=== PATIENT | female | born 1995 | race Caucasian/White ===

== ENCOUNTER 2016-02-15 06:09 | Emergency (ER) | payer OTHER ==
[~2016-02-15] VITALS: Ht 160 cm; Wt 54.5 kg
[2016-02-15 06:23] VITALS: TEMP 36.4; Ht 160 cm; Wt 54.5 kg
[2016-02-15 07:27] LABS: BASO % 0.1 %; BASO ABS # 0.02 K/uL (0-0.2); COMPLETE YES; EOS % 0.1 %; HEMATOCRIT 37.7 % (37-47); IG% 0.2 %; LYMPH % 7.8 %; LYMPH ABS # 1.09 K/uL (1.2-3.4); MEAN CELL VOLUME 87.9 fL (80-100); MEAN CORPUSCULAR HEMOGLOBIN 30.5 pg (25-34); MEAN CORPUSCULAR HGB CONC 34.7 g/dl (32-36); MEAN PLATELET VOLUME 11.1 fL (7.4-10.4); MONO % 9.1 %; NEUT % 82.7 %; PLATELET COUNT 306 K/uL (130-400); RED BLOOD COUNT 4.29 M/uL (4.2-5.4); WHITE BLOOD COUNT 13.97 K/uL (4.8-10.8)
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
[2016-02-15 07:46] LABS: ALT/SGPT 37 U/L (12-78); AST/SGOT 22 U/L (15-37); BLOOD UREA NITROGEN 12 mg/dl (7-18); BUN/CREATININE RATIO 14.2 (10-20); CALCIUM 9.4 mg/dl (8.5-10.1); CARBON DIOXIDE 24 mmol/L (21-32); CHLORIDE 102 mmol/L (98-107); CREATININE 0.81 mg/dl (0.60-1.20); GLUCOSE 104 mg/dl (70-99); POTASSIUM 3.7 mmol/L (3.5-5.1); SODIUM 138 mmol/L (136-145)
[2016-02-15 07:56] LABS: URINE APPEARANCE CLEAR (CLEAR); URINE BILIRUBIN NEG (NEG); URINE COLOR YELLOW; URINE NITRITE NEG (NEG); URINE SPECIFIC GRAVITY 1.017 (1.000-1.030); UROBILINOGEN NEG (NEG)
[2016-02-15 07:57] LABS: ALB/GLOB RATIO 1.1 (0.9-2); ALKALINE PHOSPHATASE 85 U/L (45-117); THYROID STIMULATING HORMONE 0.996 uIu/ml (0.300-4.500)
[2016-02-15 08:00] LABS: MANUAL MICROSCOPIC REQUIRED? NO; REVIEW REQ? NO
[2016-02-15 08:22] LABS: BENZODIAZEPINE, URINE NEG (NEG); COCAINE,URINE NEG (NEG); PHENCYCLIDINE, URINE NEG (NEG)
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
[2016-02-15] MEDS ORDERED: LEVONORGESTREL (EMERGENCY OC) 1.5 MG TAB PO STA (14:10)
[2016-02-15] MEDS ORDERED: SODIUM CHLORIDE 0.9% 1000ML 1,000 ML IV STA (14:23)
--- NOTE | 2016-02-15 14:52 | DIAGNOSTIC IMAGING REPORT ---
CHEST ONE VIEW PORTABLE CLINICAL HISTORY: Altered mental status. COMPARISON STUDY: No previous studies for comparison. FINDINGS: Lung volumes are normal. Lungs are clear. There is no pneumothorax or pleural effusion. Cardiac size is normal. Mediastinal contours are normal. There is no evidence of pulmonary edema. IMPRESSION: No acute cardiopulmonary findings. Electronically signed by: Filiberto Priest M.D. 02/15/2016 2:51 PM Dictated Date/Time: 02/15/2016 2:50 PM
[2016-02-15 15:18] LABS: BENZODIAZEPINE, URINE NEG (NEG); COCAINE,URINE NEG (NEG); PHENCYCLIDINE, URINE NEG (NEG)
--- NOTE | 2016-02-15 15:21 | DIAGNOSTIC IMAGING REPORT ---
CT OF THE HEAD WITHOUT CONTRAST CLINICAL HISTORY: Altered mental status. COMPARISON STUDY: No previous studies for comparison. CT DOSE: 638.56 mGycm TECHNIQUE: Helical axial images of the head were obtained without IV contrast. Automated exposure control was utilized for the study. FINDINGS: No acute intracranial hemorrhage, midline shift or mass affect is present. Brain volume is normal. Ventricular system is normal. The basilar cisterns are patent. Ríos-white differentiation is maintained. There are no findings to suggest acute dural sinus thrombosis or acute territorial infarct. Visual portions of the sinuses and mastoid air cells are clear. There are no calvarial abnormalities. IMPRESSION: No acute intracranial findings. Electronically signed by: Filiberto Priest M.D. 02/15/2016 3:19 PM Dictated Date/Time: 02/15/2016 3:18 PM
[2016-02-15 16:04] VITALS: BP 160/99; PULSE 95; O2SAT 98
[2016-02-16 23:08] LABS: CHLAMYDIA TRACH RNA*** DETECTED (NOT DETECTED); GC (NEIS GONORRHOEAE)RNA** NOT DETECTED (NOT DETECTED)
--- NOTE | 2016-02-17 16:44 | Pharmacy Progress Note ---
ED Pharmacist Culture FollowUp Date of Service: Feb 17, 2016. Chlamydia trachomatis RNA detected. Patient did not receive treatment for this during ER visit. Patient was transferred to [facility] on 02/15/16 and is still a patient there. I spoke with GIULIA Odell. I explained the positive STI test for chlamydia and need for treatment. She asked we fax the results to their facility for review. She provided the fax number [phone]. I attempted to fax these results over. On first attempt the line was busy and communication failed. I attempted a second time and asked the ER clerk secretary to f /u on whether the transmission was successful and if not please contact [facility] for further instructions ( )
== END 2016-02-15 16:07 ==
LOC: EDBD 06:09 → C.EDA 06:11
DX: F39 Unspecified mood [affective] disorder (principal); N93.9 Abnormal uterine and vaginal bleeding, unspecified